=== PATIENT | female | born 1950 | race Caucasian/White ===

== ENCOUNTER 2017-10-13 08:52 | Day surgery (SDC) | payer MEDICARE ==
[2017-10-13] MEDS ORDERED: Lactated Ringer's 1,000 ML IV ONE ×2 (11:16)
[2017-10-13] MEDS ORDERED: Propofol 10 mg/ml Inj (20 ML) ONE (11:18)
--- NOTE | 2017-10-13 11:18 | CP.SDSHP ---
Same Day Surgery H & P - History Proposed Procedure: COLONSCOPY Pre-Op Diagnosis: SEE NOTES - Previous Medical/Surgical History Cardiac: Hypertension Endocrine/Metabolic: Diabetes Pain: 4.Moderate Pain - Allergies Allergies: Allergies No Known Allergies Allergy (Verified 10/13/17 09:42) - Physical Exam General Appearance: N Vital Signs: Vital Signs 10/13/17 09:30 Temperature 97.3 F L Pulse Rate 64 Respiratory 17 Rate Blood Pressure 124/62 O2 Sat by Pulse 98 Oximetry Mental Status: Alert & Oriented x3 Neuro: WNL Heart: Other Lungs: WNL GI: Other - {Optional Preform as Required} Breast: WNL Abdomen: Other Rectal: Other Integument: WNL : WNL Ortho: Other ENT: WNL - Impression Pt. Evaluated Today:Candidate for Anesthesia & Procedure: Yes - Date & Time Time: :18 Short Stay Discharge - Short Stay Discharge Admitting Diagnosis/Reason for Visit: ABNORMAL WEIGHT LOSS Disposition: HOME/ ROUTINE
[2017-10-13] MEDS ORDERED: Lidocaine Hydrochloride 5 ML INJ ONE (11:36)
[2017-10-13] MEDS ORDERED: Belladonna-Phenobarbital PO ONE (11:50)
[2017-10-13 12:59] VITALS: TEMP 97.1
[2017-10-13 13:19] VITALS: RESP 18
[2017-10-13 13:28] VITALS: BP 135/73; PULSE 70; O2SAT 99
== END 2017-10-13 12:45 | disposition home or self-care (01) ==
LOC: C.ENDO 08:52
PROVIDERS: ATTEND Specialist
DX: R63.4 Abnormal weight loss (principal); R10.9 Unspecified abdominal pain; K57.30 Diverticulosis of large intestine without perforation or abscess without bleeding
CPT/HCPCS: 45378; 82948; 88305; J2704; J7120

== ENCOUNTER 2017-10-15 07:55 | Day surgery (SDC) | payer MEDICARE ==
[2017-10-15 08:26] VITALS: O2SAT 100
[2017-10-15] MEDS ORDERED: Propofol 10 mg/ml Inj (20 ML) ONE (10:16)
[2017-10-15] MEDS ORDERED: Lidocaine Hydrochloride 10 ML INJ ONE (10:17)
--- NOTE | 2017-10-15 10:18 | CP.SDSHP ---
Same Day Surgery H & P - History Proposed Procedure: EGD Pre-Op Diagnosis: SEE NOTES - Previous Medical/Surgical History Cardiac: Hypertension Endocrine/Metabolic: Diabetes Misc: Other Pain: 4.Moderate Pain - Allergies Allergies: Allergies No Known Allergies Allergy (Verified 10/15/17 08:17) - Physical Exam General Appearance: N Vital Signs: Vital Signs 10/15/17 08:18 Temperature 96.6 F L Pulse Rate 62 Respiratory 16 Rate Blood Pressure 126/70 O2 Sat by Pulse 100 Oximetry Mental Status: Alert & Oriented x3 Neuro: WNL Heart: Other Lungs: WNL GI: Other - {Optional Preform as Required} Breast: WNL Abdomen: Other Rectal: Other Integument: WNL : WNL Ortho: WNL ENT: WNL - Impression Pt. Evaluated Today:Candidate for Anesthesia & Procedure: Yes - Date & Time Time: 10:17 Short Stay Discharge - Short Stay Discharge Admitting Diagnosis/Reason for Visit: DYSPEPSIA Disposition: HOME/ ROUTINE
[2017-10-15] MEDS ORDERED: Lactated Ringer's 1,000 ML IV ONE (10:20)
[2017-10-15] MEDS ORDERED: Belladonna-Phenobarbital PO ONE (10:45)
[2017-10-15] MEDS ORDERED: Pantoprazole 40 mg EC Tab PO ONE (10:50)
[2017-10-15 10:57] VITALS: TEMP 97.3
[2017-10-15 11:05] VITALS: RESP 15
[2017-10-15 11:30] VITALS: BP 154/74; PULSE 56
== END 2017-10-15 11:58 | disposition home or self-care (01) ==
LOC: C.ENDO 07:55
PROVIDERS: ATTEND Specialist
DX: R10.13 Epigastric pain (principal); Z87.11 Personal history of peptic ulcer disease; Z79.84 Long term (current) use of oral hypoglycemic drugs; Z79.82 Long term (current) use of aspirin; Z79.899 Other long term (current) drug therapy; E11.9 Type 2 diabetes mellitus without complications; I10 Essential (primary) hypertension
CPT/HCPCS: 43239; 82948; 88305; 88342; J2704; J7120